=== PATIENT | male | born 1940 | race Caucasian/White ===

== ENCOUNTER 2021-08-24 09:38 | Emergency (ER) | payer OTHER ==
[2021-08-24 10:17] VITALS: TEMP 98.1; BMI 29.0
[2021-08-24] MEDS ORDERED: CASIRIVIMAB/IMDEVIMAB 10 ML in SODIUM CHLORIDE 100 ML IVPB ONE (10:42)
[2021-08-24 12:29] LABS: HEMATOCRIT 42.4 % (35.4-49); HEMOGLOBIN 14.6 GM/dL (11.7-16.9); MCH 31.6 pg (25.7-33.7); MCHC 34.3 g/dl (32.0-35.9); MEAN CELL VOLUME 92.1 fl (80-96); PLATELET COUNT 181 10^3/uL (134-434); RBC 4.61 M/mm3 (4.00-5.60); RDW 13.6 % (11.9-15.9); WHITE BLOOD COUNT 8.5 K/mm3 (4.0-10.0)
[2021-08-24 13:14] LABS: CALCIUM 9.3 mg/dL (8.5-10.1)
[2021-08-24 13:15] LABS: BLOOD UREA NITROGEN 12.4 mg/dL (7-18)
[2021-08-24 13:18] LABS: CREATININE 1.2 mg/dL (0.55-1.3)
[2021-08-24 14:32] VITALS: BP 131/92; PULSE 75
== END 2021-08-24 14:32 | disposition home or self-care (01) ==
LOC: JCOVINFU 09:38
DX: U07.1 COVID-19 (principal)
CPT/HCPCS: 36415; 80048; 85027; 99284-25; Q0240

== ENCOUNTER 2023-01-13 10:34 | Emergency (ER) | payer OTHER ==
[2023-01-13 10:40] VITALS: BP 141/92; PULSE 80; RESP 16; TEMP 98.5; BMI 29.0
[2023-01-13 11:33] LABS: HEMATOCRIT 43.5 % (35.4-49); HEMOGLOBIN 14.4 G/dL (11.7-16.9); MCHC 33.2 g/dl (32.0-35.9); MEAN CELL VOLUME 93.5 fl (80-96); MEAN PLT VOLUME 10.1 fl (7.5-11.1); PLATELET COUNT 174.9 10^3/uL (134-434); RBC 4.65 10^6/uL (4.00-5.60); RDW 14.8 % (11.9-15.9); WHITE BLOOD COUNT 7.5 10^3/uL (4.0-10.8)
[2023-01-13 11:51] LABS: BILIRUBIN,TOTAL 1.3 mg/dl (0.2-1); CALCIUM 9.2 mg/dl (8.5-10); CREATININE 1.2 mg/dl (0.55-1.3); TOT PROT 6.9 g/dl (6.4-8.2)
[2023-01-13 11:57] LABS: PLATELET ESTIMATE NORMAL
[2023-01-13 12:04] LABS: EPITHELIAL CELLS RARE /hpf
== END 2023-01-13 12:30 | disposition home or self-care (01) ==
LOC: FER 10:34
DX: R50.9 Fever, unspecified (principal); R42 Dizziness and giddiness; R53.81 Other malaise; M79.10 Myalgia, unspecified site; B34.9 Viral infection, unspecified; Z20.822 Contact with and (suspected) exposure to COVID-19
CPT/HCPCS: 0241U-QW; 36415; 71046-TC-FY; 80053; 81003; 81015; 84484; 85027; 93005; 99285-25

== ENCOUNTER 2024-06-12 10:05 | Observation (INO) | payer OTHER ==
[2024-06-12 10:22] VITALS: RESP 18; BMI 29.0
[2024-06-12] MEDS ORDERED: ALBUTEROL SO4 2.5/IPRATROPIUM 0.5 INH SOL 3 ML VIAL.NEB. NEB ONE ×2 (11:33→12:57)
[2024-06-12] MEDS: ALBUTEROL SO4 2.5/IPRATROPIUM 0.5 INH SOL 3 ML VIAL.NEB. NEB ONE ×2 (11:35→13:04)
[2024-06-12 12:10] LABS: ALBUMIN 4.3 g/dl (3.4-5.0); ALK PHOS 109 U/L (45-117); ANION GAP 9 mmol/L (4-13); BILIRUBIN,TOTAL 1.9 mg/dl (0.2-1); CALCIUM 9.6 mg/dl (8.5-10.1); CHLORIDE 104 mmol/L (98-107); CO2 26 mmol/L (21-32); CREATININE 1.2 mg/dl (0.6-1.3); GLUCOSE,RANDOM 105 mg/dl (74-106); POTASSIUM 4.1 mmol/L (3.5-5.1); SGOT/AST 31 U/L (15-37); SGPT/ALT 42 U/L (7-52); SODIUM 139 mmol/L (136-145); TOT PROT 6.6 g/dl (6.4-8.2)
[2024-06-12 12:20] LABS: HEMATOCRIT 45.9 % (35.4-49); MCH 30.8 pg (25.7-33.7); MCHC 32.7 g/dl (32.0-35.9); MEAN CELL VOLUME 94.1 fl (80-96); MEAN PLT VOLUME 10.5 fl (7.5-11.1); PLATELET COUNT 185.7 10^3/uL (134-434); RBC 4.88 10^6/uL (4.00-5.60); RDW 14.1 % (11.9-15.9); WHITE BLOOD COUNT 9.6 10^3/uL (4.0-10.8)
[2024-06-12 12:37] LABS: VENOUS BASE EXCESS -0.2 mmol/L (-2-2); VENOUS O2 SATURATION 87.8 % (70-80); VENOUS PCO2 40.3 mmHg (38-52); VENOUS PH 7.401 (7.310-7.410)
[2024-06-12 12:49] LABS: PLATELET ESTIMATE ADEQUATE
[2024-06-12] MEDS ORDERED: methylPREDNISolone NA SUCC 125 MG/2 ML VIAL ONE (12:57)
[2024-06-12] MEDS: methylPREDNISolone NA SUCC 125 MG/2 ML VIAL IVPB ONE (13:00)
[2024-06-12 13:07] LABS: N-TERMINAL BNP 1416.9 pg/ml (5-450)
[2024-06-12 13:32] VITALS: BP 124/71; PULSE 71; TEMP 98.2
[2024-06-12] MEDS ORDERED: ALBUTEROL SO4 2.5/IPRATROPIUM 0.5 INH SOL 3 ML VIAL.NEB. NEB PRN (14:06)
[2024-06-12] MEDS ORDERED: ACETAMINOPHEN 500 MG TABLET (FP) PO PRN (14:06)
[2024-06-12] MEDS: LORATADINE 10 MG TABLET PO SCH (14:37)
[2024-06-13] MEDS ORDERED: amLODIPine BESYLATE 5 MG TABLET (FP) PO SCH (10:00)
== END 2024-06-12 15:43 | disposition home or self-care (01) ==
LOC: FER 10:05 → INTOOBSV 13:58 → FM/S 13:58
PROVIDERS: ADMIT Internal Medicine; ATTEND Internal Medicine
PROC: 3E0F7GC Introduction of Other Therapeutic Substance into Respiratory Tract, Via Natural or Artificial Opening (ICD-10-PCS; principal; 2024-06-12)
PROC: 3E03329 Introduction of Other Anti-infective into Peripheral Vein, Percutaneous Approach (ICD-10-PCS; 2024-06-12)
PROC: 3E033GC Introduction of Other Therapeutic Substance into Peripheral Vein, Percutaneous Approach (ICD-10-PCS; 2024-06-12)
DX: J18.9 Pneumonia, unspecified organism (principal); R09.82 Postnasal drip; I10 Essential (primary) hypertension; Z87.891 Personal history of nicotine dependence; Z88.8 Allergy status to other drugs, medicaments and biological substances
CPT/HCPCS: 0241U-QW; 36415; 71046-TC-FY; 80053; 82803; 83880; 84484; 85027; 93005; 94640; 96365; 96375; 99285-25; G0378

== ENCOUNTER 2024-09-16 09:57 | Emergency (ER) | payer OTHER ==
[2024-09-16 10:03] VITALS: BP 121/86; PULSE 81; RESP 18; TEMP 98.6; BMI 29.0
== END 2024-09-16 11:27 | disposition home or self-care (01) ==
LOC: FER 09:57
DX: J40 Bronchitis, not specified as acute or chronic (principal); R05.9 Cough, unspecified; J18.9 Pneumonia, unspecified organism
CPT/HCPCS: 71046-TC-FY; 99283-25